=== PATIENT | male | born 1970 ===

== ENCOUNTER 2018-05-17 13:27 | Emergency (ER) | payer OTHER, MEDICAID, SELFPAY ==
[2018-05-17 13:32] VITALS: BP 102/65; PULSE 96; RESP 15; TEMP 36.9; O2SAT 100; BMI 18.3
[2018-05-17 16:21] VITALS: BP 98/61; PULSE 62; RESP 16; TEMP 36.8; O2SAT 98
--- NOTE | 2018-05-17 16:36 | ED_ITS ---
HPI - General Adult <DANIEL Enriquez - Last Filed: 05/17/18 16:40> General Chief complaint: Abdominal Pain Stated complaint: light headed,craving sweets,sweating,lost weight Time Seen by Provider: 05/17/18 15:48 Source: patient and family Mode of arrival: ambulatory Limitations: no limitations History of Present Illness HPI narrative: Male everyday smoker who presents with a chief complaint of concern for diabetes. He states that he has had an increased appetite for suite for the past week. Thus he is worried that he has diabetes, especially since his father was diagnosed with type 2 diabetes at a similar age. Denies any nausea vomiting or diarrhea. He states he is thirsty and has an urge for sugary foods. He denies any fevers. Denies chest pain or shortness of breath. he states he has not called his primary care provider, but does have an appointment with her next week. Review of Systems <DANIEL Enriquez - Last Filed: 05/17/18 16:40> Review of Systems GENERAL: See HPI HEENT: Denies sinus pain, ear pain, sore throat, difficulty swallowing, dizziness. RESPIRATORY: Denies dyspnea, cough, wheezing, hemoptysis, sputum. CARDIOVASCULAR: Denies chest pain, palpitations, orthopnea, edema, GASTROINTESTINAL: See HPI : Denies dysuria, frequency, incontinence, hematuria, urinary retention. MUSCULOSKELETAL: denies weakness, joint pain, or bony pain SKIN: Denies rash, skin lesions, or other NEUROLOGIC: Denies weakness, headache, numbness, change in speech, confusion, seizures, incoordination. PSYCHIATRIC: No concerning psychosocial issues. 12 point review of systems is negative except for those stated above PFSH <DANIEL Enriquez - Last Filed: 05/17/18 16:40> Social History Smoking Status: Current every day smoker Social History Smoking Status: Current every day smoker Exam <DANIEL Enriquez - Last Filed: 05/17/18 16:40> Narrative Exam Narrative: GENERAL: This is a well-nourished, well-developed patient, in no acute distress HEAD: Atraumatic. Normocephalic. No temporal or scalp tenderness. EYES: Pupils equal round and reactive. Extraocular motions intact. No scleral icterus. No injection or drainage. ENT: Nose without bleeding, purulent drainage or septal hematoma. Throat without erythema, tonsillar hypertrophy or exudate. Uvula midline. Airway patent. NECK: Trachea midline. No JVD or lymphadenopathy. Supple, nontender, no meningeal signs. CARDIOVASCULAR: Regular rate and rhythm without murmurs, gallops, or rubs. RESPIRATORY: Clear to auscultation. Breath sounds equal bilaterally. No wheezes, rales, or rhonchi. GASTROINTESTINAL: Abdomen soft, non-tender, nondistended. No hepato-splenomega ly, or palpable masses. No guarding. active bowel sounds. No palpable mass. EXTREMITIES: No clubbing, cyanosis, or edema. No joint tenderness, effusion, or edema noted. BACK: Nontender without deformity or crepitance. No flank tenderness. NEURO: AOx3. SKIN: No rash or erythema. Initial Vital Signs Initial Vital Signs: Vital Signs Temperature 98.4 F 05/17/18 13:32 Pulse Rate 96 H 05/17/18 13:32 Respiratory Rate 15 05/17/18 13:32 Blood Pressure 102/65 05/17/18 13:32 Pulse Oximetry 100 05/17/18 13:32 <Dottie Veloz DO - Last Filed: 05/20/18 18:44> Initial Vital Signs Initial Vital Signs: Vital Signs Temperature 98.4 F 05/17/18 13:32 Pulse Rate 96 H 05/17/18 13:32 Respiratory Rate 15 05/17/18 13:32 Blood Pressure 102/65 05/17/18 13:32 Pulse Oximetry 100 05/17/18 13:32 Course <PERI Enriquez-ANGELINE - Last Filed: 05/17/18 16:40> Vital Signs - 8 hr 05/17/18 13:32 05/17/18 16:21 Temperature 98.4 F 98.2 F Pulse Rate 96 H 62 Respiratory Rate 15 16 Blood Pressure 102/65 98/61 Pulse Oximetry 100 98 <Dottie Veloz DO - Last Filed: 05/20/18 18:44> Vital Signs - 8 hr 05/17/18 13:32 05/17/18 16:21 Temperature 98.4 F 98.2 F Pulse Rate 96 H 62 Respiratory Rate 15 16 Blood Pressure 102/65 98/61 Pulse Oximetry 100 98 Medical Decision Making <PERI Enriquez-BC - Last Filed: 05/17/18 16:40> Lab Data Point of Care Testing Glucose POC 111 Urine Dip Bedside Urine Glucose Negative Bedside Urine Bilirubin - Negative Bedside Urine Ketone - Negative Urine Specific [place] 1.030 Bedside Urine Occult Blood - Negative Bedside Urine pH 5.5 Bedside Urine Protein - Negative Bedside Urine Urobilinogen - Negative Bedside Urine Nitrite - Negative Bedside Urine Leukocytes - Negative Esterase Point of care testing: Point of Care Testing Glucose POC 111 Urine Dip Bedside Urine Glucose Negative Bedside Urine Bilirubin - Negative Bedside Urine Ketone - Negative Urine Specific [place] 1.030 Bedside Urine Occult Blood - Negative Bedside Urine pH 5.5 Bedside Urine Protein - Negative Bedside Urine Urobilinogen - Negative Bedside Urine Nitrite - Negative Bedside Urine Leukocytes - Negative Esterase MDM Narrative Medical decision making narrative: The patient is a 47-year-old male who presen ts with a chief complaint of ?I believe I have diabetes room related to increased desire for sugary foods for the past week. His fingerstick in the emergency department with normal. he does not have any glucose or ketones in his urine. I encouraged follow-up with primary care provider in the next few days given his concern for diabetes. He does not have any evidence there of today and appears well and nontoxic in the emergency department. Discussed her precautions of acute illness, concern for heart attack or stroke. Patient and had no questions or concerns upon discharge. <Dottie Veloz DO - Last Filed: 05/20/18 18:44> Lab Data Point of Care Testing Glucose POC 111 Urine Dip Bedside Urine Glucose Negative Bedside Urine Bilirubin - Negative Bedside Urine Ketone - Negative Urine Specific [place] 1.030 Bedside Urine Occult Blood - Negative Bedside Urine pH 5.5 Bedside Urine Protein - Negative Bedside Urine Urobilinogen - Negative Bedside Urine Nitrite - Negative Bedside Urine Leukocytes - Negative Esterase Point of care testing: Point of Care Testing Glucose POC 111 Urine Dip Bedside Urine Glucose Negative Bedside Urine Bilirubin - Negative Bedside Urine Ketone - Negative Urine Specific [place] 1.030 Bedside Urine Occult Blood - Negative Bedside Urine pH 5.5 Bedside Urine Protein - Negative Bedside Urine Urobilinogen - Negative Bedside Urine Nitrite - Negative Bedside Urine Leukocytes - Negative Esterase Discharge Plan Departure Patient Disposition: Home Clinical Impression: No problem, feared complaint unfounded Discharge Date/Time: 05/17/18 16:21 Interventions: ED Discharge Assessment Last Done: 05/17/18 16:21 Instructions: Diabetes, General (Alternative Therapy), DI for Diabetes Type 2, Diet Soda Intake Linked to Increase Risk of Type 2 Diabetes Activity Restrictions/Additional Instructions: Your blood sugar is normal today and your urine shows no signs of diabetes. Please follow up with primary care provider as scheduled on . She will likely want to do more lab work. Please follow up with her PCP and come back to the emergency department for any acute concerns. Stand Alone Forms: Work Release Note <Dottie Veloz DO - Last Filed: 05/20/18 18:44> Cosign ED Attending Cosignature Attestation: I was immediately available in the department for consultation. This documentation has been reviewed and I agree with assessment and plan. Supervised by Dottie Veloz DO
== END 2018-05-17 16:21 | disposition home or self-care (01) ==
PROVIDERS: Emergency Provider Nurse Practitioner Family
DX: Z71.1 Person with feared health complaint in whom no diagnosis is made (principal)
CPT/HCPCS: 81003; 82962; 99282